=== PATIENT | male | born 1960 | race Caucasian/White ===

== ENCOUNTER 2017-11-15 09:26 | Emergency (ER) | payer BC, OTHER ==
[~2017-11-15] VITALS: Ht 165.1 cm; Wt 88.5 kg
[2017-11-15] MEDS ORDERED: ALLO100T PO (09:50)
[2017-11-15] MEDS ORDERED: MONT10TA21 PO (09:50)
[2017-11-15] MEDS ORDERED: LISI1TAB8 PO (09:50)
[2017-11-15] MEDS ORDERED: SERT25TA5 PO (09:50)
[2017-11-15] MEDS ORDERED: ASPI-586 PO (09:50)
[2017-11-15 10:08] LABS: BILIRUBIN,URINE NEGATIVE (NEGATIVE); CLARITY,URINE CLEAR; COLOR,URINE YELLOW; GLUCOSE, URINE (UA) NEGATIVE (NEGATIVE); KETONES,URINE NEGATIVE (NEGATIVE); LEUKOCYTE ESTERASE ,URINE 2+ (NEGATIVE); NITRITE,URINE NEGATIVE (NEGATIVE); PH,URINE 6 (5-9); PROTEIN,URINE 2+ (NEGATIVE); UROBILINOGEN,URINE NORMAL (NORMAL)
[2017-11-15 10:09] LABS: BASOPHILS % (AUTO) 0 % (0-10); EOSINOPHILS # (AUTO) 0.1 10^3/uL (0.0-0.3); EOSINOPHILS % (AUTO) 2 % (0-10); HEMATOCRIT 37 % (40-54); HEMOGLOBIN 13.3 G/DL (13.3-17.7); LYMPHOCYTES # (AUTO) 1.1 X 10^3 (1.0-4.0); LYMPHOCYTES % (AUTO) 18 % (12-44); MEAN CORPUSCULAR HEMOGLOBIN 31 PG (25-34); MEAN CORPUSCULAR HGB CONC 36 G/DL (32-36); MEAN CORPUSCULAR VOLUME 87 FL (80-99); MEAN PLATELET VOLUME 11.5 FL (7.4-10.4); MONOCYTES # (AUTO) 0.4 X 10^3 (0.0-1.0); MONOCYTES % (AUTO) 6 % (0-12); NEUTROPHILS # (AUTO) 4.5 X 10^3 (1.8-7.8); NEUTROPHILS % (AUTO) 74 % (42-75); PLATELET COUNT 118 10^3/uL (130-400); RED BLOOD COUNT 4.28 10^6/uL (4.35-5.85); RED CELL DISTRIBUTION WIDTH 13.7 % (10.0-14.5); WHITE BLOOD COUNT 6.1 10^3/uL (4.3-11.0)
[2017-11-15 10:25] LABS: BACTERIA,URINE TRACE /HPF; RBC,URINE 50-100 /HPF; SQUAMOUS EPITHELIAL CELL,UR 0-2 /HPF; WBC,URINE 0-2 /HPF
[2017-11-15 10:28] LABS: ALANINE AMINOTRANSFERASE 20 U/L (0-55); ALBUMIN 4.7 GM/DL (3.2-4.5); ALKALINE PHOSPHATASE 63 U/L (40-136); BILIRUBIN,TOTAL 0.9 MG/DL (0.1-1.0); BUN/CREATININE RATIO 10; CALCIUM 9.5 MG/DL (8.5-10.1); CARBON DIOXIDE 28 MMOL/L (21-32); CHLORIDE 105 MMOL/L (98-107); CREATININE SERUM 1.27 MG/DL (0.60-1.30); GFR ESTIMATED 58; GLUCOSE 109 MG/DL (70-105); LIPASE 19 U/L (8-78); POTASSIUM 4.1 MMOL/L (3.6-5.0); SODIUM 141 MMOL/L (135-145); TOTAL PROTEIN 6.6 GM/DL (6.4-8.2)
--- NOTE | 2017-11-15 10:30 | ED Abdominal Pain ---
General Chief Complaint: Abdominal/GI Problems Stated Complaint: RT SIDE ABD PAIN Nursing Triage Note: PT AMBULATES TO ROOM 10 PT CO OF R LOWER ABD PAIN, DENIES N/V/D STATES STARTED AT 0715 THIS AM. PT ABD NOT TENDER TO TOUCH Sepsis Screen: No Definite Risk Source of Information: Patient History of Present Illness Date Seen by Provider: Nov 15, 2017 Time Seen by Provider: 10:26 Initial Comments The patient is a 57-year-old white male who reports that he had the onset of right lower quadrant abdominal pain at about 07 15 while he was driving to work. He had the sense that he was in need of having a large bowel movement. He noted belching and some flatus. He had had a small stool earlier this morning. He is not one to eat breakfast. He had had his usual Pepsi. He has no previous history of abdominal surgery. He has not noted blood or black tarry stools. Allergies and Home Medications Allergies Coded Allergies: ibuprofen (Unverified Allergy, Unknown, 11/16/14) Home Medications Allopurinol 100 Mg Tablet, 100 MG PO D, (Reported) Aspirin 81 Mg Tablet.dr, 81 MG PO DAILY, (Reported) Lisinopril/Hydrochlorothiazide 1 Each Tablet, 1 EACH PO DAILY, (Reported) Sertraline HCl 25 Mg Tablet, 25 MG PO DAILY, (Reported) Patient Home Medication List Home Medication List Reviewed: Yes Review of Systems Constitutional: see HPI EENTM: No Symptoms Reported Respiratory: No Symptoms Reported Cardiovascular: No Symptoms Reported Gastrointestinal: Abdominal Pain, Other (no guarding or rebound) Genitourinary: No Symptoms Reported Musculoskeletal: no symptoms reported Skin: no symptoms reported Psychiatric/Neurological: No Symptoms Reported Endocrine: No Symptoms Reported Hematologic/Lymphatic: No Symptoms Reported Past Qxdbzma-Zqrgkt-Vunbqf Hx Patient Social History Alcohol Use: Occasionally Uses Recreational Drug Use: No Smoking Status: Never a Smoker Recent Foreign Travel: No Contact w/Someone Who Travel: No Recent Infectious Disease Expo: No Recent Hopitalizations: No Physical Abuse: No Sexual Abuse: No Seasonal Allergies Seasonal Allergies: No Past Medical History Surgeries: No Respiratory: No Cardiac: Yes Hypertension Neurological: No Genitourinary: No Gastrointestinal: No Musculoskeletal: Yes Gout Endocrine: No HEENT: No Cancer: No Psychosocial: No Nursing Suicide Risk Score: 0 Integumentary: No Blood Disorders: No Physical Exam Vital Signs Vital Signs - First Documented 11/15/17 09:35 Temp 98.1 Pulse 73 B/P (MAP) 177/88 (117) Pulse Ox 94 Capillary Refill : Less Than 3 Seconds Height/Weight/BMI Height: 5'5.00" Weight: 195lbs. oz. 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, no motor/sensory deficits, alert, normal mood/affect, oriented x 3 Skin: normal color Lymphatic: no adenopathy Progress/Results/Core Measures Results/Orders Lab Results Laboratory Tests Test 11/15/17 09:46 11/15/17 09:56 Range/Units Urine Color YELLOW Urine Clarity CLEAR Urine pH 6 5-9 Urine Specific [place] 1.015 L 1.016-1.022 Urine Protein 2+ H NEGATIVE Urine Glucose (UA) NEGATIVE NEGATIVE Urine Ketones NEGATIVE NEGATIVE Urine Nitrite NEGATIVE NEGATIVE Urine Bilirubin NEGATIVE NEGATIVE Urine Urobilinogen NORMAL NORMAL MG/DL Urine Leukocyte Esterase 2+ H NEGATIVE Urine RBC (Auto) 5+ H NEGATIVE Urine RBC 50-100 H /HPF Urine WBC 0-2 /HPF Urine Squamous Epithelial Cells 0-2 /HPF Urine Crystals NONE /LPF Urine Bacteria TRACE /HPF Urine Casts NONE /LPF Urine Mucus NEGATIVE /LPF Urine Culture Indicated NO White Blood Count 6.1 4.3-11.0 10^3/uL Red Blood Count 4.28 L 4.35-5.85 10^6/uL Hemoglobin 13.3 13.3-17.7 G/DL Hematocrit 37 L 40-54 % Mean Corpuscular Volume 87 80-99 FL Mean Corpuscular Hemoglobin 31 25-34 PG Mean Corpuscular Hemoglobin Concent 36 32-36 G/DL Red Cell Distribution Width 13.7 10.0-14.5 % Platelet Count 118 L 130-400 10^3/uL Mean Platelet Volume 11.5 H 7.4-10.4 FL Neutrophils (%) (Auto) 74 42-75 % Lymphocytes (%) (Auto) 18 12-44 % Monocytes (%) (Auto) 6 0-12 % Eosinophils (%) (Auto) 2 0-10 % Basophils (%) (Auto) 0 0-10 % Neutrophils # (Auto) 4.5 1.8-7.8 X 10^3 Lymphocytes # (Auto) 1.1 1.0-4.0 X 10^3 Monocytes # (Auto) 0.4 0.0-1.0 X 10^3 Eosinophils # (Auto) 0.1 0.0-0.3 10^3/uL Basophils # (Auto) 0.0 0.0-0.1 10^3/uL Sodium Level 141 135-145 MMOL/L Potassium Level 4.1 3.6-5.0 MMOL/L Chloride Level 105 98-107 MMOL/L Carbon Dioxide Level 28 21-32 MMOL/L Anion Gap 8 5-14 MMOL/L Blood Urea Nitrogen 13 7-18 MG/DL Creatinine 1.27 0.60-1.30 MG/DL Estimat Glomerular Filtration Rate 58 BUN/Creatinine Ratio 10 Glucose Level 109 H 70-105 MG/DL Calcium Level 9.5 8.5-10.1 MG/DL Corrected Calcium 8.5-10.1 MG/DL Total Bilirubin 0.9 0.1-1.0 MG/DL Aspartate Amino Transf (AST/SGOT) 18 5-34 U/L Alanine Aminotransferase (ALT/SGPT) 20 0-55 U/L Alkaline Phosphatase 63 40-136 U/L Total Protein 6.6 6.4-8.2 GM/DL Albumin 4.7 H 3.2-4.5 GM/DL Lipase 19 8-78 U/L My Orders Orders - SAM CROWLEY MD Cbc With Automated Diff (11/15/17 09:41) Comprehensive Metabolic Panel (11/15/17 09:41) Lipase (11/15/17 09:41) Ua Culture If Indicated (11/15/17 09:41) Ct Abd/Pelvis Wo(Kidney Stone) (11/15/17 10:37) Vital Signs/I&O 11/15/17 09:35 Temp 98.1 Pulse 73 B/P (MAP) 177/88 (117) Pulse Ox 94 Blood Pressure Mean: 117 Departure Communication (Admissions) Attempt was made to discuss the patient with Dr. Nova our urologist. The phone went to voicemail. The findings will be discussed with Dr. Griffin relative to follow-up. CT report showed some incidental findings including bony lucencies in the thoracic and lumbar spine and bilateral iliac bones. There was relatively large spleen. The right renal collecting system appeared to be somewhat dilated without evidence of stone. Impression Primary Impression: abdominal pain Additional Impression: hematuria Disposition: 01 HOME, SELF-CARE Condition: Stable/Unchanged Departure-Patient Inst. Decision time for Depature: 12:32 Referrals: TAMMY GRIFFIN DO (PCP/Family) Primary Care Physician Patient Instructions: No Instuctions Given Add. Discharge Instructions: All discharge instructions reviewed with patient and/or family. Voiced understanding. He will need to see Dr. Griffin in the next week to 10 days. Return to ER if pain becomes unbearable Strain all urine SAM CROWLEY MD Nov 15, 2017 10:30
--- OUTSIDE RECORDS SUMMARY | 2017-11-15 10:44 | XMS REPORT | Continuity of Care Document ---
Author Author [facility] Organization [facility] Address Unknown Phone Unavailable Allergies Active Description Code Type Severity Reaction Onset Reported/Identified Relationship to Patient Clinical Status Yes ibuprofen [id number] Drug Allergy Unknown N/A 11/16/2014 Medications There is no data. Problems Date Dx Coded Attending Type Code Diagnosis Diagnosed By 12/04/2014 TAMMY MCCOY DO Ot 414.00 03/23/2015 TAMMY MCCOY DO Ot 414.00 04/08/2015 TAMMY MCCOY DO Ot 414.00 03/07/2016 TAMMY MCCOY DO Ot 414.00 CORON ATHEROSCLER NOS TYPE VESSEL, NATIV Procedures There is no data. Results There is no data. Encounters ACCT No. Visit Date/Time Discharge Status Pt. Type Provider Facility Loc./Unit Complaint [id number] 11/16/2014 07:23:00 11/16/2014 23:59:59 CLS Outpatient TAMMY MCCOY DO [facility] CARD CORONARY ATHEROSCLEROSIS [id number] 01/13/2013 11:19:00 01/13/2013 23:59:59 CLS Outpatient
--- NOTE | 2017-11-15 11:25 | Diagnostic Imaging Report ---
PROCEDURE: CT urinary tract, rule out kidney stone. TECHNIQUE: Multiple contiguous axial images were obtained through the abdomen and pelvis without the use of intravenous contrast. INDICATION: Right flank pain starting today with microscopic hematuria. CORRELATION STUDY: None. FINDINGS: LOWER THORAX: Tiny 2 mm nodule lingula left upper lobe. No basilar infiltrate. Heart size normal. Small hiatal hernia. LIVER: Unremarkable on unenhanced imaging.. GALLBLADDER: Small gallstone present. Slightly distended. Otherwise unremarkable. No bile duct dilatation. SPLEEN: Enlarged. Approximately 14 mm low-density region anteriorly and superiorly, nonspecific. PANCREAS: Unremarkable. ADRENAL GLANDS: Unremarkable. KIDNEYS: Kidneys have relatively normal configuration. Asymmetric perinephric stranding present. No definitive calcification. However, there is slight asymmetric dilatation of the right ureter with periureteric stranding. A definitive calcification along the course of the ureter is not visualized. No stone within the urinary bladder. ABDOMINAL AORTA: Mild wall calcification, nonaneurysmal. GASTROINTESTINAL TRACT: No obstruction or inflammation. Normal appendix. Scattered colonic diverticula are present, particularly distally. No evidence for acute diverticulitis. No abdominal ascites or free air. URINARY BLADDER: Unremarkable. REPRODUCTIVE: Prostate gland does appear to be mildly enlarged. OSSEOUS STRUCTURES: There are several scattered, subtle lucencies present. This includes within the visualized portion of the thoracic and lumbar spine and bilateral iliac bones. OTHER: Small fat-containing retro-umbilical hernia. IMPRESSION: 1. There is suggestion of slight dilatation of the right renal collecting system without definitive ureteric calcification. Perhaps recent passage of a stone could give this appearance. Possibly noncalcified obstructive process is not excluded or perhaps underlying infectious etiology. 2. There is suggested splenomegaly with a low-density mass of the spleen. The spine is nonspecific, or possibility of underlying neoplasm not excluded. 3. There is presence of multiple subtle low-density masses within the visualized osseous structures. While this could be of a benign process, potential lytic neoplastic process not excluded. 4.: Diverticulosis without evidence for diverticulitis. 5. Cholelithiasis. 6. Tiny indeterminate nodule lingula left upper lobe. Dictated by: Dictated on workstation # [id number]
[2017-11-15 13:02] VITALS: BP 177/88
== END 2017-11-15 13:02 | disposition home or self-care (01) ==
LOC: EDUNIT# 09:26 → ER 09:28
DX: R10.31 Right lower quadrant pain (principal); R31.9 Hematuria, unspecified; I10 Essential (primary) hypertension; M10.9 Gout, unspecified; Z88.6 Allergy status to analgesic agent; Z79.82 Long term (current) use of aspirin
CPT/HCPCS: 36415; 74176; 80053; 81000; 83690; 85025

== ENCOUNTER → 2018-10-28 | Outpatient (CLI) | payer OTHER ==
[~2018-10-28] MED LIST: ALLO100T PO; ASPI-586 PO; BARIUM SUSPENSION 2.1% (VANILLA SILQ) 450 ML PO ONE; HOLD METFORMIN - RECEIVED CONTRAST 20 ML VIAL IV SCH; IOHEXOL 350 MG/ML 100 ML (OMNIPAQUE 350) VIAL IV ONE; LISI1TAB8 PO; MONT10TA21 PO; NS 100 ML (IVPB) BAG IV ONE; SERT25TA5 PO
[2018-10-28 11:09] LABS: BILIRUBIN,URINE NEGATIVE (NEGATIVE); CLARITY,URINE CLEAR; COLOR,URINE YELLOW; GLUCOSE, URINE (UA) NEGATIVE (NEGATIVE); KETONES,URINE NEGATIVE (NEGATIVE); LEUKOCYTE ESTERASE ,URINE NEGATIVE (NEGATIVE); NITRITE,URINE NEGATIVE (NEGATIVE); PH,URINE 5 (5-9); PROTEIN,URINE NEGATIVE (NEGATIVE); UROBILINOGEN,URINE NORMAL (NORMAL)
[2018-10-28 11:10] LABS: BASOPHILS % (AUTO) 0 % (0-10); EOSINOPHILS # (AUTO) 0.1 10^3/uL (0.0-0.3); EOSINOPHILS % (AUTO) 2 % (0-10); HEMATOCRIT 40 % (40-54); HEMOGLOBIN 13.3 G/DL (13.3-17.7); LYMPHOCYTES # (AUTO) 1.6 X 10^3 (1.0-4.0); LYMPHOCYTES % (AUTO) 20 % (12-44); MEAN CORPUSCULAR HEMOGLOBIN 29 PG (25-34); MEAN CORPUSCULAR HGB CONC 34 G/DL (32-36); MEAN CORPUSCULAR VOLUME 88 FL (80-99); MEAN PLATELET VOLUME 11.6 FL (7.4-10.4); MONOCYTES # (AUTO) 0.3 X 10^3 (0.0-1.0); MONOCYTES % (AUTO) 4 % (0-12); NEUTROPHILS # (AUTO) 5.7 X 10^3 (1.8-7.8); NEUTROPHILS % (AUTO) 73 % (42-75); PLATELET COUNT 145 10^3/uL (130-400); RED CELL DISTRIBUTION WIDTH 13.3 % (10.0-14.5); WHITE BLOOD COUNT 7.8 10^3/uL (4.3-11.0)
[2018-10-28 11:24] LABS: BACTERIA,URINE NEGATIVE /HPF; RBC,URINE RARE /HPF; SQUAMOUS EPITHELIAL CELL,UR RARE /HPF; WBC,URINE RARE /HPF
[2018-10-28 11:33] LABS: ALANINE AMINOTRANSFERASE 15 U/L (0-55); ALBUMIN 4.7 GM/DL (3.2-4.5); ALKALINE PHOSPHATASE 72 U/L (40-136); BILIRUBIN,TOTAL 0.5 MG/DL (0.1-1.0); BUN/CREATININE RATIO 18; CALCIUM 9.8 MG/DL (8.5-10.1); CARBON DIOXIDE 28 MMOL/L (21-32); CHLORIDE 104 MMOL/L (98-107); GFR ESTIMATED > 60; GLUCOSE 95 MG/DL (70-105); POTASSIUM 4.2 MMOL/L (3.6-5.0); SODIUM 141 MMOL/L (135-145); TOTAL PROTEIN 6.8 GM/DL (6.4-8.2)
--- NOTE | 2018-10-28 12:47 | Diagnostic Imaging Report ---
PROCEDURE: CT abdomen and pelvis with and without contrast. TECHNIQUE: Precontrast acquisitions were acquired through the abdomen and pelvis. Multiple contiguous axial images were obtained through the abdomen and pelvis after the administration of intravenous contrast. Auto Exposure Controls were utilized during the CT exam to meet ALARA standards for radiation dose reduction. INDICATION: Evaluate for kidney stones. Right lower quadrant pain for two days. COMPARISON: 11/15/2017. FINDINGS: The heart is unremarkable. The included lung bases are clear. Stable cyst in the spleen measuring 1.2 cm. The liver, pancreas, adrenal glands, and kidneys have a normal appearance. No evidence of renal calculi or hydronephrosis. There is no pathologically enlarged mesenteric or retroperitoneal adenopathy. The bowel loops are nondilated. The appendix is unremarkable. Scattered diverticula are seen in the descending and sigmoid colon without evidence of acute diverticulitis. There is no free fluid or free air. The osseous structures are age appropriate. There is calcified aortic and iliac atherosclerotic plaque without evidence of aneurysm. Ureters and bladder are grossly normal. The prostate is enlarged. There is no free air, loculated collection, or adenopathy in the pelvis. IMPRESSION: 1. Scattered diverticula in the descending and sigmoid colon without evidence of acute diverticulitis. 2. No evidence of renal calculi or hydronephrosis. Unremarkable appearance of the kidneys. 3. Prostatomegaly. Dictated by: Dictated on workstation # [id number]
== END ==
LOC: RAD 10:52
PROVIDERS: ATTEND Internal Medicine
DX: K57.30 Diverticulosis of large intestine without perforation or abscess without bleeding (principal); N40.0 Benign prostatic hyperplasia without lower urinary tract symptoms
CPT/HCPCS: 36415; 74178; 80053; 81000; 85025

== ENCOUNTER 2019-05-05 07:38 | Emergency (ER) | payer OTHER ==
[~2019-05-05] VITALS: Ht 167 cm; Wt 83.1 kg
[~2019-05-05 07:38] MED LIST changes: -BARIUM SUSPENSION 2.1% (VANILLA SILQ) 450 ML PO ONE; -HOLD METFORMIN - RECEIVED CONTRAST 20 ML VIAL IV SCH; -IOHEXOL 350 MG/ML 100 ML (OMNIPAQUE 350) VIAL IV ONE; +LISI1TAB25 PO; -LISI1TAB8 PO; -NS 100 ML (IVPB) BAG IV ONE
[2019-05-05 07:57] LABS: BASOPHILS % (AUTO) 0 % (0-10); EOSINOPHILS # (AUTO) 0.2 10^3/uL (0.0-0.3); EOSINOPHILS % (AUTO) 3 % (0-10); HEMATOCRIT 41 % (40-54); HEMOGLOBIN 13.9 G/DL (13.3-17.7); LYMPHOCYTES # (AUTO) 1.1 X 10^3 (1.0-4.0); LYMPHOCYTES % (AUTO) 18 % (12-44); MEAN CORPUSCULAR HEMOGLOBIN 30 PG (25-34); MEAN CORPUSCULAR HGB CONC 34 G/DL (32-36); MEAN CORPUSCULAR VOLUME 88 FL (80-99); MEAN PLATELET VOLUME 11.3 FL (7.4-10.4); MONOCYTES # (AUTO) 0.4 X 10^3 (0.0-1.0); MONOCYTES % (AUTO) 6 % (0-12); NEUTROPHILS # (AUTO) 4.5 X 10^3 (1.8-7.8); NEUTROPHILS % (AUTO) 74 % (42-75); PLATELET COUNT 126 10^3/uL (130-400); RED CELL DISTRIBUTION WIDTH 14.1 % (10.0-14.5); WHITE BLOOD COUNT 6.1 10^3/uL (4.3-11.0)
[2019-05-05] MEDS ORDERED: FAMOTIDINE 20MG/2ML IV (PEPCID) IVP ONE (08:00)
[2019-05-05] MEDS ORDERED: ONDANSETRON 4 MG/2 ML (SDV) Z0FRAN IVP ONE (08:00)
[2019-05-05 08:11] LABS: PROTHROMBIN TIME PATIENT 13.7 SEC (12.2-14.7)
[2019-05-05 08:18] LABS: ALANINE AMINOTRANSFERASE 16 U/L (0-55); ALBUMIN 4.8 GM/DL (3.2-4.5); ALKALINE PHOSPHATASE 71 U/L (40-136); BILIRUBIN,TOTAL 0.5 MG/DL (0.1-1.0); BUN/CREATININE RATIO 11; CALCIUM 9.7 MG/DL (8.5-10.1); CARBON DIOXIDE 27 MMOL/L (21-32); CHLORIDE 104 MMOL/L (98-107); CREATININE SERUM 1.22 MG/DL (0.60-1.30); GFR ESTIMATED 60; GLUCOSE 115 MG/DL (70-105); MAGNESIUM 1.9 MG/DL (1.6-2.4); POTASSIUM 3.5 MMOL/L (3.6-5.0); SODIUM 142 MMOL/L (135-145); TOTAL PROTEIN 7.3 GM/DL (6.4-8.2)
--- NOTE | 2019-05-05 08:20 | Diagnostic Imaging Report ---
INDICATION: Chest pain. TIME OF EXAM: 8:03 AM Correlation is made with prior chest from 01/13/2013. FINDINGS: The heart size is normal. The pulmonary vascularity is unremarkable. The lungs are clear. No infiltrate, effusion or pneumothorax is detected. IMPRESSION: No acute cardiopulmonary process is detected. Dictated by: Dictated on workstation # [id number]
--- NOTE | 2019-05-05 09:23 | NUR ---
PT STATES FEELING GOOD. DENIES C/P
--- NOTE | 2019-05-05 11:30 | ED Chest Pain ---
General Chief Complaint: Chest Pain Stated Complaint: CHEST PAIN Nursing Triage Note: PT AMUBLATED TO ROOM 5 PT CO OF HAVING C/P THIS AM. PT STATES STARTED AT 0630. PT DENIES C/P @ THIS X. STATES TOOK 4 [place] THIS AM. HAS BEEN BLECHING AND HAD 4 BOWEL MOVEMENTS. Nursing Sepsis Screen: No Definite Risk Source: patient Exam Limitations: no limitations History of Present Illness Date Seen by Provider: May 05, 2019 Time Seen by Provider: 07:40 Allergies and Home Medications Allergies Coded Allergies: ibuprofen (Unverified Allergy, Unknown, 11/16/14) Home Medications Allopurinol 100 Mg Tablet, 100 MG PO D, (Reported) Aspirin 81 Mg Tablet.dr, 81 MG PO DAILY, (Reported) Lisinopril/Hydrochlorothiazide 1 Each Tablet, 1 EACH PO DAILY, (Reported) Sertraline HCl 25 Mg Tablet, 25 MG PO DAILY, (Reported) Past Jffomkp-Kxtwpl-Ykenpw Hx Patient Social History Alcohol Use: Regular Use Number of Drinks Today: 0 Alcohol Beverage of Choice: Wine Recreational Drug Use: No Smoking Status: Former Smoker Recent Foreign Travel: No Contact w/Someone Who Travel: No Recent Infectious Disease Expo: No Recent Hopitalizations: No Physical Abuse: No Sexual Abuse: No Seasonal Allergies Seasonal Allergies: No Past Medical History Surgeries: No Respiratory: No Cardiac: Yes Hypertension Neurological: No Genitourinary: No Gastrointestinal: No Musculoskeletal: Yes Gout Endocrine: No HEENT: No Cancer: No Psychosocial: No Integumentary: No Blood Disorders: No Physical Exam Vital Signs Vital Signs - First Documented 05/05/19 07:39 Temp 36.7 Pulse 101 Resp 20 B/P (MAP) 173/104 (127) Pulse Ox 96 O2 Delivery Room Air Capillary Refill : Less Than 3 Seconds Height, Weight, BMI Height: 5'5.00" Weight: 195lbs. oz. 88.316350jl; 29.00 BMI Method:Stated Progress/Results/Core Measures Results/Orders Lab Results Laboratory Tests Test 05/05/19 07:45 05/05/19 10:44 Range/Units White Blood Count 6.1 4.3-11.0 10^3/uL Red Blood Count 4.64 4.35-5.85 10^6/uL Hemoglobin 13.9 13.3-17.7 G/DL Hematocrit 41 40-54 % Mean Corpuscular Volume 88 80-99 FL Mean Corpuscular Hemoglobin 30 25-34 PG Mean Corpuscular Hemoglobin Concent 34 32-36 G/DL Red Cell Distribution Width 14.1 10.0-14.5 % Platelet Count 126 L 130-400 10^3/uL Mean Platelet Volume 11.3 H 7.4-10.4 FL Neutrophils (%) (Auto) 74 42-75 % Lymphocytes (%) (Auto) 18 12-44 % Monocytes (%) (Auto) 6 0-12 % Eosinophils (%) (Auto) 3 0-10 % Basophils (%) (Auto) 0 0-10 % Neutrophils # (Auto) 4.5 1.8-7.8 X 10^3 Lymphocytes # (Auto) 1.1 1.0-4.0 X 10^3 Monocytes # (Auto) 0.4 0.0-1.0 X 10^3 Eosinophils # (Auto) 0.2 0.0-0.3 10^3/uL Basophils # (Auto) 0.0 0.0-0.1 10^3/uL Prothrombin Time 13.7 12.2-14.7 SEC INR Comment 1.0 0.8-1.4 Activated Partial Thromboplast Time 28 24-35 SEC Sodium Level 142 135-145 MMOL/L Potassium Level 3.5 L 3.6-5.0 MMOL/L Chloride Level 104 98-107 MMOL/L Carbon Dioxide Level 27 21-32 MMOL/L Anion Gap 11 5-14 MMOL/L Blood Urea Nitrogen 14 7-18 MG/DL Creatinine 1.22 0.60-1.30 MG/DL Estimat Glomerular Filtration Rate 60 BUN/Creatinine Ratio 11 Glucose Level 115 H 70-105 MG/DL Calcium Level 9.7 8.5-10.1 MG/DL Corrected Calcium 8.5-10.1 MG/DL Magnesium Level 1.9 1.6-2.4 MG/DL Total Bilirubin 0.5 0.1-1.0 MG/DL Aspartate Amino Transf (AST/SGOT) 16 5-34 U/L Alanine Aminotransferase (ALT/SGPT) 16 0-55 U/L Alkaline Phosphatase 71 40-136 U/L Myoglobin 55.6 10.0-92.0 NG/ML Troponin I < 0.028 < 0.028 <0.028 NG/ML Total Protein 7.3 6.4-8.2 GM/DL Albumin 4.8 H 3.2-4.5 GM/DL My Orders Orders - NARGIS PETERSEN MD Cbc With Automated Diff (05/05/19 07:40) Magnesium (05/05/19 07:40) Chest 1 View, Ap/Pa Only (05/05/19 07:40) Ekg Tracing (05/05/19 07:40) Comprehensive Metabolic Panel (05/05/19 07:40) Myoglobin Serum (05/05/19 07:40) Protime With Inr (05/05/19 07:40) Partial Thromboplastin Time (05/05/19 07:40) O2 (05/05/19 07:40) Monitor-Rhythm Ecg Trace Only (05/05/19 07:40) Lipid Panel (05/06/19 06:00) Ed Iv/Invasive Line Start (05/05/19 07:40) Ondansetron Injection (Zofran Injectio (05/05/19 08:00) Famotidine Injection (Pepcid Injection) (05/05/19 08:00) Troponin I (05/05/19 07:45) Troponin I (05/05/19 10:20) Medications Given in ED Current Medications Medications Dose Ordered Sig/Meseret Route Start Time Stop Time Status Last Admin Dose Admin Famotidine 20 mg ONCE ONCE IVP 05/05/19 08:00 05/05/19 08:01 DC 05/05/19 08:14 20 MG Ondansetron HCl 4 mg ONCE ONCE IVP 05/05/19 08:00 05/05/19 08:01 DC 05/05/19 08:14 4 MG Vital Signs/I&O 05/05/19 05/05/19 07:39 07:39 Temp 36.7 Pulse 101 Resp 20 B/P (MAP) 173/104 (127) Pulse Ox 96 O2 Delivery Room Air Blood Pressure Mean: 127 Initial ECG Impression Date: May 05, 2019 Initial ECG Impression Time: 07:38 Initial ECG Rate: 97 Initial ECG Rhythm: Normal Sinus Initial ECG Intervals: Normal Initial ECG Impression: Normal Comment Normal sinus rhythm with no ST elevation or depression. No abnormal intervals or axis deviation. Departure Impression Primary Impression: Atypical chest pain Disposition: HOME, SELF-CARE Condition: Improved Departure-Patient Inst. Decision time for Depature: 11:30 Referrals: TAMMY MCCOY DO (PCP/Family) Primary Care Physician Patient Instructions: Chest Pain (DC), Acid Reflux (Gastroesophageal Reflux Disease), Adult (DC) Add. Discharge Instructions: Use omeprazole 20 mg twice daily for the next couple of weeks. This may be purchased [id number]. Follow-up with your primary care provider soon as possible. Discuss possible referral for endoscopy or consultation to a technology engineer for further heart workup. Avoid the following: Eating large meals, eating close to bed time, caffeine, carbonation, chocolate, alcohol, tobacco, citrus fruits or juices, tomato products, mints, spicy foods, fatty or greasy foods, NSAID medications such as ibuprofen or naproxen, or anything else you know irritate your stomach. Please return to the emergency room if you have worsening symptoms despite these measures. All discharge instructions reviewed with patient and/or family. Voiced understanding. Copy Copies To 1: TAMMY MCCOY JOSHUA T MD May 05, 2019 11:30
[2019-05-05 12:28] VITALS: BP 140/83
== END 2019-05-05 12:28 | disposition home or self-care (01) ==
LOC: EDUNIT# 07:38 → ER 07:39
DX: R07.89 Other chest pain (principal); I10 Essential (primary) hypertension; M10.9 Gout, unspecified; Z88.6 Allergy status to analgesic agent; Z79.82 Long term (current) use of aspirin; Z87.891 Personal history of nicotine dependence
CPT/HCPCS: 36415; 71045; 80053; 83735; 83874; 84484; 85025; 85610; 85730; 93005; 93041

== ENCOUNTER → 2019-05-09 | Outpatient (CLI) | payer OTHER ==
--- NOTE | 2019-05-09 08:37 | Diagnostic Imaging Report ---
PROCEDURE: US Gallbladder. TECHNIQUE: Multiple real-time grayscale images were obtained over the right upper quadrant in various projections. INDICATION: Epigastric pain. FINDINGS: The liver is normal in size 16.1 cm. No discrete liver mass is detected. The portal vein is patent and shows normal direction of flow. Gallbladder is without stones or sludge. No wall thickening or biliary ductal dilatation is identified. The pancreas was obscured by bowel gas. Visualized proximal aorta is nonaneurysmal. IVC is patent. Right kidney shows normal cortical thickness and echogenicity. No calculi or hydronephrosis is seen. There is no ascites. IMPRESSION: Unremarkable gallbladder ultrasound. Dictated by: Dictated on workstation # [id number]
== END ==
LOC: RAD 07:37
PROVIDERS: ATTEND Internal Medicine
DX: R10.13 Epigastric pain (principal)
CPT/HCPCS: 76705

== ENCOUNTER → 2019-05-22 | Outpatient (CLI) | payer OTHER ==
[~2019-05-22] MED LIST changes: +CATHETER FLUSH 10 ML SYR IV PRN
--- NOTE | 2019-05-22 10:43 | Diagnostic Imaging Report ---
EXAMINATION: Hepatobiliary scan with ejection fraction. INDICATION: Abdominal pain. TECHNIQUE: This study was performed following administration of 4.78 mCi of 99m technetium Choletec. One can of Ensure was also administered for the calculation of the ejection fraction. FINDINGS: There are no prior nuclear medicine studies available for comparison. The gallbladder ultrasound exam performed on 05/09/2019 failed to show any sign of cholelithiasis or acute cholecystitis. On this exam, there is uptake of the radiotracer by the gallbladder before 30 minutes. This would weigh against the diagnosis of acute cholecystitis. There is also extension of the radiotracer into the small bowel, indicating that the common bile duct is not obstructed. The ejection fraction is only 19.9% (normal greater than 35%). The reason for the diminished ejection fraction is not certain. The possibility of biliary dyskinesia should be considered. IMPRESSION: 1. There is no evidence for acute cholecystitis or for obstruction of the common bile duct. 2. However, the ejection fraction is only 19.9% and below normal limits. Dictated by: Dictated on workstation # [id number]
== END ==
LOC: CARD 07:42
PROVIDERS: ATTEND Internal Medicine
DX: R10.13 Epigastric pain (principal)
CPT/HCPCS: 78227

== ENCOUNTER 2019-05-27 05:38 | Outpatient (CLI) | payer OTHER ==
[~2019-05-27] VITALS: Ht 165.1 cm; Wt 79.5 kg
[~2019-05-27 05:38] MED LIST changes: -CATHETER FLUSH 10 ML SYR IV PRN
[2019-05-27] MEDS ORDERED: OMEP-280 PO (11:20)
[2019-05-27] MEDS ORDERED: CHOL200014 PO (11:20)
[2019-05-27] MEDS ORDERED: OMEG100032 PO (11:20)
== END 2019-05-27 11:29 | disposition home or self-care (01) ==
LOC: PREOP 05:38
PROVIDERS: ATTEND Surgery
DX: Z01.818 Encounter for other preprocedural examination (principal)

== ENCOUNTER 2019-05-29 09:03 | Day surgery (SDC) | payer OTHER ==
[~2019-05-29] VITALS: Ht 165.1 cm; Wt 79.5 kg
[2019-05-29] VITALS (12 sets, daily range): BP systolic 99–146; BP diastolic 45–82
[~2019-05-29 09:03] MED LIST changes: +CHOL200014 PO; +OMEG100032 PO; +OMEP20CA18 PO
[2019-05-29] MEDS ORDERED: MIDAZOLAM 2 MG/2 ML (VERSED) VIAL IVP ONE ×2 (09:30→10:00)
[2019-05-29] MEDS ORDERED: ceFAZolin 2 GM/50 ML NS 50 ML IV ONE (09:30)
[2019-05-29] MEDS ORDERED: MIDAZOLAM SYRUP (VERSED) 10MG/5ML UDC PO ONE (09:30)
[2019-05-29] MEDS ORDERED: MIDAZOLAM 2 MG/2 ML (VERSED) VIAL ONE ×2 (09:34→09:57)
[2019-05-29] MEDS ORDERED: ceFAZolin INJECTION 1,000 MG ONE (09:34)
[2019-05-29] MEDS ORDERED: WATER (STERILE) FOR INJECTION 10 ML ONE (09:34)
[2019-05-29] MEDS ORDERED: BUP/EPI 0.5% 1:200,000 (SENSORCAINE) 30 ML VIAL ONE (09:39)
[2019-05-29] MEDS ORDERED: ceFAZolin 1,000 MG/SWFI 10 ML IV PUSH IV ONE ×2 (09:45)
--- NOTE | 2019-05-29 09:46 | Progress Note-Pre Operative ---
Pre-Operative Progress Note H&P Reviewed The H&P was reviewed, patient examined and no changes noted. Date Seen by Provider: May 29, 2019 Time Seen by Provider: :45 Date H&P Reviewed: May 29, 2019 Time H&P Reviewed: :45 Pre-Operative Diagnosis: ruq abd pain, biliary dyskinesia ADAM LEACH DO May 29, 2019 09:46
[2019-05-29] MEDS ORDERED: fentaNYL INJECTION 100 MCG/2 ML AMP ONE (09:57)
[2019-05-29] MEDS ORDERED: SEVOFLURANE (ULTANE) 15 ML INHAL SOLN ONE ×2 (09:57→11:26)
[2019-05-29] MEDS ORDERED: proPOfol 200 MG/20 ML (DIPRIVAN) VIAL IV ONE (09:57)
[2019-05-29] MEDS ORDERED: LIDOCAINE PF 2% 5 ML (XYLOCAINE) VIAL ONE (09:57)
[2019-05-29] MEDS ORDERED: ONDANSETRON 4 MG/2 ML (SDV) Z0FRAN ONE (09:57)
[2019-05-29] MEDS ORDERED: DEXAMETHASONE 10 MG/ML (DECADRON) 1 ML VIAL ONE (09:57)
[2019-05-29] MEDS: LACTATED RINGERS 1,000 ML IV PRN ×2 (10:01→10:53)
[2019-05-29] MEDS ORDERED: IOPAMIDOL 61% 30 ML (ISOVUE 300) VIAL IV ONE (10:59)
[2019-05-29] MEDS ORDERED: NEOSTIGMINE 3 MG/3 ML VIAL ONE (11:13)
[2019-05-29] MEDS ORDERED: GLYCOPYRROLATE 0.2 MG/ML (ROBINUL) 2 ML VIAL ONE (11:13)
--- NOTE | 2019-05-29 11:13 | Progress Note-Post Operative ---
Post-Operative Progess Note Surgeon (s)/Litigation Coordinator (s) Surgeon ADAM LEACH DO Litigation Coordinator: Dr. Ledezma Pre-Operative Diagnosis ruq abd pain, biliary dyskinesia Post-Operative Diagnosis same Procedure & Operative Findings Date of Procedure 05/29/19 Procedure Performed/Findings lap kadeem c ioc Anesthesia Type gen Estimated Blood Loss Estimated blood loss (mL): min Specimens/Packing Specimens Removed gallbladder ADAM LEACH DO May 29, 2019 11:13
[2019-05-29] MEDS ORDERED: ACHD5005 PO (11:14)
[2019-05-29] MEDS ORDERED: DOCU-143 PO (11:14)
--- NOTE | 2019-05-29 11:15 | Discharge Inst-Simple/Standard ---
Discharge Inst-Standard Discharge Medications New, Converted or Re-Newed RX: RX on Chart Patient Instructions/Follow Up Plan of Care/Instructions/FU: 2 weeks Alma Delia Activity as Tolerated: No Discharge Diet: Regular Diet Other Inst to Patient Follow up Appt: Make appointment for 2 weeks. Instructions: No lifting greater than 10 pounds. No strenuous activity. May shower in 24 hours, no tub bath or soaking. Use incentive spirometer at home as directed. No Smoking Skin/Wound Care: You have special glue over incisions it will fall off on its own. Symptoms to Report: Appetite Changes, Extremity Discoloration, Numbness/Tingling, Swelling Increased, Bleeding Excessive, Eyesight Changes, Pain Increased, Urine Color Change, Constipation(Persistent), Fever over 101 degree F, Pain/Pressure in chest, Urinating Difficulty, Cough Up/Vomit Blood, Heart Beat Irreg/Pounding, Pain/Pressure in jaw, Vaginal Bleeding Increase, Cramps in feet or legs, Lightheadedness, Pain/Pressure in shoulder, Diarrhea(Persistent), Memory Changes Suddenly, Questions/Concerns, Weight gain consecutive days, Dizziness/Fainting, Nausea/Vomiting, Shortness of Breath, Weight gain over 2 pounds. If eyes or skin turn yellow notify physician. If questions or concerns contact your physician Or seek help at emergency department. ADAM LEACH DO May 29, 2019 11:15
[2019-05-29] MEDS ORDERED: ROCURONIUM 10 MG/ML 5 ML SYRINGE IV ONE (11:26)
[2019-05-29] MEDS ORDERED: HYDROmorphone 2 MG/ML VIAL (DILAUDID) IV ONE (11:30)
[2019-05-29] MEDS ORDERED: ONDANSETRON 4 MG/2 ML (SDV) Z0FRAN IVP PRN (11:30)
[2019-05-29] MEDS ORDERED: morphine INJ 10 MG/ML 1ML (SYR OR VIAL) IVP ONE (11:30)
--- NOTE | 2019-05-29 11:54 | Diagnostic Imaging Report ---
EXAMINATION: Fluoroscopy INDICATION: Lap kadeem Fluoroscopic assistance was provided for Dr. Flannery during his laparoscopic cholecystectomy procedure. 7 seconds of fluoroscopy time was utilized. 31 spot films of the right upper quadrant were obtained. There are laparoscopic devices in place. There has been opacification of the common bile duct. The duct is not dilated and there is extension of contrast into the small bowel. There is no defect to suggest retained calculus. IMPRESSION: Fluoroscopic assistance was provided for Dr. Flannery. Dictated by: Dictated on workstation # [id number]
--- NOTE | 2019-05-29 13:18 | Anesthesia-General Post-Op ---
General Patient Condition Mental Status/LOC: Same as Preop Cardiovascular: Satisfactory Nausea/Vomiting: Absent Respiratory: Satisfactory Pain: Controlled Complications: Absent Post Op Complications Complications None Follow Up Care/Instructions Patient Instructions None needed. Anesthesia/Patient Condition Patient Condition Patient is doing well, no complaints, stable vital signs, no apparent adverse anesthesia problems. CHIN DURAN DO May 29, 2019 13:18
[2019-05-29] MEDS ORDERED: ONDANSETRON 4 MG (ZOFRAN) ORAL DISSOLVE TAB ONE (14:55)
[2019-05-29] MEDS ORDERED: ONDANSETRON 4 MG (ZOFRAN) ORAL DISSOLVE TAB PO ONE (15:00)
--- NOTE | 2019-05-29 19:25 | OPERATIVE REPORT ---
DATE OF SERVICE: 05/29/2019 PREOPERATIVE DIAGNOSES: Right upper quadrant abdominal pain, biliary dyskinesia. POSTOPERATIVE DIAGNOSES: Right upper quadrant abdominal pain, biliary dyskinesia. PROCEDURE: Laparoscopic cholecystectomy with intraoperative cholangiogram. SURGEON: Adam Flannery DO ANESTHESIA: General. ESTIMATED BLOOD LOSS: Minimal. COMPLICATIONS: None. INDICATIONS: The patient is a 59-year-old male with right upper quadrant abdominal pain and workup consistent with biliary dyskinesia. He understands risks and benefits of procedure and wished to proceed with procedure. Consent was signed in the chart. DESCRIPTION OF PROCEDURE: The patient was taken to the operating suite, was prepped and draped in sterile fashion. Surgical pause was performed. A #11 blade scalpel was used to make a skin incision above the umbilicus. Cautery was used to dissect down the fascia, which was then scored, grasped and elevated and the abdomen was then entered. A 0 Vicryl was placed in a [id number] fashion for closure at the end of the case. Balloon trocar was inserted and pneumoperitoneum was achieved. Under direct visualization of the laparoscope, a 5 mm trocar was placed in subxiphoid region and two 5 mm trocars were placed in the right upper quadrant. Gallbladder was grasped, elevated, multiple adhesions stuck up to the gallbladder, which were then bluntly taken down with cautery. The cystic duct and cystic artery were then dissected out. Clips were placed on the proximal and distal portion of the cystic artery and the distal portion of the cystic duct. The cystic duct was then partially transected. Arrow catheter was inserted and cholangiogram was performed. There were no filling defects. Contrast made its way into the duodenum without difficulty. The catheter was then removed. Clips were placed on the proximal portion of the cystic duct and the duct and the artery were then completely transected. Hook cautery used to dissect the gallbladder from the gallbladder fossa achieving hemostasis. Once removed, it was placed in an Endobag and removed through 12 mm trocar site. Abdomen was irrigated and suctioned. Hemostasis had been achieved. The abdomen was then desufflated, the trocars were removed. The 0 Vicryl was placed at the beginning of the case was then tied closing 12 mm fascial defect. The abdomen was washed and dried and skin was then closed using 4-0 Monocryl in subcuticular fashion. Skin Affix was placed over the incisions. The patient tolerated procedure well without any complications, taken to recovery room in stable condition. Job ID: [id number] DocumentID: [id number] Dictated Date: 05/29/2019 13:40:38 Copy Holder Date: 05/29/2019 19:23:52 Dictated By: ADAM FLANNERY DO
== END 2019-05-29 15:42 | disposition home or self-care (01) ==
LOC: SDC 09:03
PROVIDERS: ATTEND Surgery
DX: K80.10 Calculus of gallbladder with chronic cholecystitis without obstruction (principal); K82.8 Other specified diseases of gallbladder; I10 Essential (primary) hypertension; K21.9 Gastro-esophageal reflux disease without esophagitis; F32.9 Major depressive disorder, single episode, unspecified; Z79.899 Other long term (current) drug therapy; Z79.82 Long term (current) use of aspirin; Z11.2 Encounter for screening for other bacterial diseases
CPT/HCPCS: 87081; 88304